=== PATIENT | male | born 1985 | race Caucasian/White ===

== ENCOUNTER 2024-09-03 15:22 | Outpatient (CLI) | payer OTHER, SELFPAY | END 2024-09-03 15:23 | disposition home or self-care (01) | PROVIDERS: PCP Family Medicine; Visit Provider Family Medicine | DX: Z13.220 Encounter for screening for lipoid disorders (principal); Z13.1 Encounter for screening for diabetes mellitus | CPT/HCPCS: 80061; 82947 ==

== ENCOUNTER 2025-09-15 10:12 | Outpatient (CLI) | payer OTHER, SELFPAY | END 2025-09-15 10:13 | disposition home or self-care (01) | PROVIDERS: PCP Family Medicine; Visit Provider Family Medicine | DX: Z00.00 Encounter for general adult medical examination without abnormal findings (principal); Z13.6 Encounter for screening for cardiovascular disorders | CPT/HCPCS: 80053; 80061 ==